=== PATIENT | female | born 1990 | race Caucasian/White ===

== ENCOUNTER 2021-06-26 05:09 | Emergency (ER) | payer OTHER ==
[~2021-06-26] VITALS: Ht 167.6 cm; Wt 83.9 kg
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
--- NOTE | 2021-06-26 05:15 | NUR ---
urine sent to lab
--- NOTE | 2021-06-26 05:30 | NUR ---
covid swab sent to lab
[2021-06-26 05:47] LABS: BASOPHILS % (AUTO) 0.3 % (0.0-2.0); EOSINOPHILS % (AUTO) 0.1 % (0.0-6.0); HEMATOCRIT 42 % (33-45); HEMOGLOBIN 14.2 g/dL (11.5-14.8); LYMPHOCYTES # (AUTO) 1.7 K/uL (0.8-4.8); MEAN CORPUSCULAR HGB CONC 34 g/dl (31.0-36.0); MEAN CORPUSCULAR VOLUME 92 fL (82-100); NEUTROPHILS # (AUTO) 7.4 K/uL (1.8-8.9); NEUTROPHILS % (AUTO) 72.6 % (43.0-81.0); PLATELET COUNT (AUTO) 279 K/uL (150-450); RED BLOOD CELL COUNT(AUTO) 4.58 MIL/uL (4.0-5.2); WHITE BLOOD COUNT (AUTO) 10.2 K/uL (4.3-11.0)
[2021-06-26 06:03] LABS: BILIRUBIN,URINE Negative (NEGATIVE); COLOR,URINE YELLOW (YELLOW); LEUKOCYTE ESTERASE ,URINE Negative (NEGATIVE); NITRITE, URINE Negative (NEGATIVE); PH,URINE 8.5 (5.0-8.0); PROTEIN,URINE Negative (NEGATIVE); UGLUCOSE Negative (NEGATIVE); UROBILINOGEN,URINE 0.2 EU/dL (0.2)
[2021-06-26 06:16] LABS: CALCIUM, SERUM 9.3 mg/dL (8.5-10.1); CARBON DIOXIDE 29 mmol/L (21-32); CHLORIDE 105 mmol/L (98-107); CREATININE 0.8 mg/dL (0.6-1.3); GLUCOSE 107 mg/dL (74-106); POTASSIUM 4.3 mmol/L (3.5-5.1); SODIUM SERUM 141 mmol/L (136-145); THYROID STIMULATING HORMONE 2.053 uIU/mL (0.358-3.74)
[2021-06-26 06:21] LABS: ALANINE AMINOTRANSFERASE 23 U/L (12-78); ALKALINE PHOSPHATASE 35 U/L (46-116); BILIRUBIN,DIRECT 0.2 mg/dL (0.0-0.2); BILIRUBIN,TOTAL 0.6 mg/dL (0.2-1.0); TOTAL PROTEIN, SERUM 7.6 g/dL (6.4-8.2)
[2021-06-26 06:23] LABS: ACETAMINOPHEN 0 ug/ml (10-30); ALCOHOL, BLOOD < 3 mg/dL (0-0)
--- NOTE | 2021-06-26 06:37 | NUR ---
[facility] paged per Dr Swain.
[2021-06-26 06:45] LABS: ASPARTATE AMINOTRANSFERASE 24 U/L (15-37); UREA NITROGEN, BLOOD 13 mg/dL (7-18)
[2021-06-26 07:05] LABS: BACTERIA,URINE Few /HPF (None Seen); RBC,URINE 0-3 /HPF (0-2); SQUAMOUS EPITHELIAL CELL,UR Moderate /HPF (None Seen); URINE AMORPHOUS PHOSPHATES Few /HPF (None Seen); WBC,URINE 0-2 /HPF (0-3)
--- NOTE | 2021-06-26 07:32 | NUR ---
THE PATIENT IS RECEIVED IN ER BED 11. SLEEPING. EASILY RESPONSIVE TO VERBAL STIMULI. IN NO APPARENT DISTRESS. RESPIRATION REGULAR AND UNLABORED. THE PATIENT IN ROOM AIR. WILL CONTINUE TO MONITOR THE PATIENT.
--- NOTE | 2021-06-26 08:02 | NUR ---
[facility] [phone] fax clinicals to be fax at this number Chantal ([place]) tell [phone]
--- NOTE | 2021-06-26 08:16 | NUR ---
CLINICALS FAXED TO [facility]. FAX CONFIRMATION PAPER RECEIVED. WILL CONTINUE TO FOLLOW UP.
--- NOTE | 2021-06-26 10:04 | NUR ---
going to [facility] number for report : [phone] admitting : dr gómez eta : 1200 Addendum: 06/26/21 at 1146 by DENNYS BESSY IS [address] [place] [address]
--- NOTE | 2021-06-26 10:15 | NUR ---
Report given to nurse Ray from [facility]
--- NOTE | 2021-06-26 12:53 | NUR ---
[phone] IS [facility]. BOB STATES THAT ETA IS 10 MINUTES
[2021-06-26] MEDS ORDERED: OLANZAPINE 10 MG VIAL IM ONE ×2 (13:06→13:30)
--- NOTE | 2021-06-26 13:16 | NUR ---
ZYPREXA 10 MG IM GIVEN FOR AGGITATION.
--- NOTE | 2021-06-26 13:30 | NUR ---
THE PATIENT ALERT AND ORIENTED X4. DENIES PAIN. IN ROOM AIR AND DENIES SOB. RESPIRATION REGULAR AND UNLABORED. THE PATIENT CALM AND COOPERATIVE. DISCHARGED FROM ER GOING TO ASSIGNED FACILITY.
[2021-06-26 13:51] VITALS: BP 118/67
== END 2021-06-26 13:52 ==
LOC: ER 05:16
DX: F32.9 Major depressive disorder, single episode, unspecified (principal); F41.9 Anxiety disorder, unspecified; Z20.822 Contact with and (suspected) exposure to COVID-19; Z88.0 Allergy status to penicillin
CPT/HCPCS: 36415; 80048; 80076; 80143; 80307; 80320; 81001; 84443; 84703; 85025; 87426; 96372; 99285; C9803; J3490; G0480